=== PATIENT | male | born 1965 | race Caucasian/White ===

== ENCOUNTER 2023-08-21 21:28 | Emergency (ER) | payer SELFPAY ==
[~2023-08-21] VITALS: Ht 177.8 cm; Wt 91.0 kg
[~2023-08-21 21:28] MED LIST: AMIODARONE HCL 50MG/ML 3ML VIAL IV ONE
[2023-08-21 21:29] VITALS: BP 130/70; PULSE 130; RESP 24; O2SAT 80
== END 2023-08-21 21:54 ==
LOC: ER 21:28
DX: I46.9 Cardiac arrest, cause unspecified (principal); F19.90 Other psychoactive substance use, unspecified, uncomplicated
CPT/HCPCS: 99285; 92950; 31500; 82962; J0282; J3490 ×4